=== PATIENT | male | born 1960 | race Caucasian/White ===

== ENCOUNTER 2016-07-02 15:59 | Emergency (ER) | payer OTHER ==
[2016-07-02 16:04] VITALS: BP 120/71; PULSE 62; TEMP 97.2; BMI 30.3
[2016-07-02 16:36] LABS: BASOPHIL 0.6 % (0-2.0); EOSINOPHIL 3.6 % (0-4.5); MCH 28.5 pg (25.7-33.7); MCHC 33.4 g/dl (32.0-35.9); MEAN CELL VOLUME 85.3 fl (80-96); MEAN PLT VOLUME 10.1 fl (7.5-11.1); NEUTROPHILS 57.5 % (42.8-82.8); PLATELET COUNT 185 K/MM3 (134-434); RDW 12.9 % (11.9-15.9); WHITE BLOOD COUNT 5.6 K/mm3 (4.0-10.0)
[2016-07-02 16:37] LABS: URINE APPEARANCE CLEAR; URINE BILIRUBIN NEGATIVE (NEGATIVE); URINE COLOR STRAW; URINE GLUCOSE (UA) NEGATIVE (NEGATIVE); URINE KETONE NEGATIVE (NEGATIVE); URINE LEUK ESTERASE NEGATIVE (NEGATIVE); URINE NITRITE NEGATIVE (NEGATIVE); URINE PROTEIN NEGATIVE (NEGATIVE); URINE UROBILINOGEN NEGATIVE E.U./dl (0.2-1.0)
--- NOTE | 2016-07-02 16:40 | PDOC ---
History of Present Illness <ChuchoIliana Elizabeth - Last Filed: 07/02/16 18:38> - History of Present Illness Initial Comments: 07/02/16 19:03 Patient is a 56 year old male, [employer] employee, with no significant medical hx who is presenting to the ED with nasal congestion, shortness of breath, headache for three days. Patient complains of shortness of breath that he associates with his nasal congestion. He states that after he blows his nose, he has some shortness of breath with palpitations. His shortness of breath also occurs with exertion and occasionally while at rest. The patient also complains of intermittent tension headache that is now resolved. Denies fevers, chills, nausea, vomiting, diarrhea, visual changes, productive cough, chest pain, or abdominal pain. Social Hx: Quit tobacco 2007, occasional alcohol use. Family Hx: Father of [place], mother is alive, brother alive and well Surgical Hx: Hernia repair <Raquel Richard - Last Filed: 07/02/16 19:12> - General Chief Complaint: Weakness Stated Complaint: HIGH BLOOD PRESSURE Time Seen by Provider: 07/02/16 16:37 Past History - Surgical History Abdominal Surgery: (hernia) - Psycho/Social/Smoking Cessation Hx Anxiety: No Suicidal Ideation: No Smoking History: Never smoked Have you smoked in the past 12 months: No Information on smoking cessation initiated: No Hx Alcohol Use: No Drug/Substance Use Hx: No Substance Use Type: None <Iliana Rankin Elizabeth - Last Filed: 07/02/16 18:38> <Raquel Richard - Last Filed: 07/02/16 19:12> - Past Medical History Allergies/Adverse Reactions: Allergies Allergy/AdvReac Type Severity Reaction Status Date / Time No Known Allergies Allergy Verified 07/02/16 16:02 Home Medications: Ambulatory Orders NK [No Known Home Medication] 07/02/16 Review of Systems - Review of Systems Comments:: 07/02/16 19:09 CONSTITUTIONAL: Absent: fever, chills, diaphoresis, generalized weakness, malaise, loss of appetite HEENT: Present: nasal congestion Absent: rhinorrhea, throat pain, throat swelling, difficulty swallowing, mouth swelling, ear pain, eye pain, visual changes CARDIOVASCULAR: Present: palpitations Absent: chest pain, syncope, irregular heart rate, lightheadedness, peripheral edema RESPIRATORY: Present: shortness of breath Absent: cough, dyspnea with exertion, orthopnea, wheezing, stridor, hemoptysis GASTROINTESTINAL: Absent: abdominal pain, abdominal distension, nausea, vomiting, diarrhea, constipation, melena, hematochezia GENITOURINARY: Absent: dysuria, frequency, urgency, hesitancy, hematuria, flank pain, genital pain MUSCULOSKELETAL: Absent: myalgia, arthralgia, joint swelling SKIN: Absent: rash, itching, pallor HEMATOLOGIC/IMMUNOLOGIC: Absent: easy bleeding, easy bruising, lymphadenopathy, frequent infections ENDOCRINE: Absent: unexplained weight gain, unexplained weight loss, heat intolerance, cold intolerance NEUROLOGIC: Present: headache Absent: focal weakness or paresthesia, dizziness, unsteady gait, seizure, mental status changes, bladder or bowel incontinence. PSYCHIATRIC: Absent: anxiety, depression, suicidal or homicidal ideation, hallucinations <Raquel Richard - Last Filed: 07/02/16 19:12> *Physical Exam - Vital Signs Last Vital Signs Temp Pulse Resp BP Pulse Ox 97.2 F L 62 18 120/71 97 07/02/16 16:02 07/02/16 16:02 07/02/16 16:02 07/02/16 16:02 07/02/16 16:02 <Iliana Rankin - Last Filed: 07/02/16 18:38> - Vital Signs Last Vital Signs Temp Pulse Resp BP Pulse Ox 97.2 F L 62 18 120/71 97 07/02/16 16:02 07/02/16 16:02 07/02/16 16:02 07/02/16 16:02 07/02/16 16:02 - Physical Exam Comments: 07/02/16 19:11 GENERAL: Well developed, well nourished. Awake and alert. No acute distress. HEENT: Normocephalic, atraumatic. PERRLA, EOMI. No conjunctival pallor. Sclera are non- icteric. Moist mucous membranes. Oropharynx is clear. NECK: Supple. Full ROM. No JVD. Carotid pulses 2+ and symmetric, without bruits. No thyromegaly. No lymphadenopathy. CARDIOVASCULAR: Regular rate and rhythm. No murmurs, rubs, or gallops. Distal pulses are 2+ and symmetric. PULMONARY: No evidence of respiratory distress. Lungs clear to auscultation bilaterally. No wheezing, rales or rhonchi. ABDOMINAL: Soft. Non-tender. Non-distended. No rebound or guarding. No organomegaly. Normoactive bowel sounds. MUSCULOSKELETAL: Normal range of motion at all joints. No bony deformities or tenderness. No CVA tenderness. EXTREMITIES: No cyanosis. No clubbing. No edema. No calf tenderness. SKIN: Warm and dry. Normal capillary refill. No rashes. No jaundice. NEUROLOGICAL: Alert, awake, appropriate. Cranial nerves 2-12 intact. Normal speech. Gait is normal without ataxia. PSYCHIATRIC: Cooperative. Good eye contact. Appropriate mood and affect. <Raquel Richard - Last Filed: 07/02/16 19:12> ED Treatment Course - LABORATORY CBC & Chemistry Diagram: 07/02/16 16:20 07/02/16 16:20 <Iliana Rankin - Last Filed: 07/02/16 18:38> - LABORATORY CBC & Chemistry Diagram: 07/02/16 16:20 07/02/16 16:20 - ADDITIONAL ORDERS Additional order review: Laboratory Results 07/02/16 07/02/16 07/02/16 16:20 16:20 16:20 Sodium 137 Potassium 4.2 Chloride 103 Carbon Dioxide 25 Anion Gap 9 BUN 21 H Creatinine 1.2 Creat Clearance w eGFR > 60 Random Glucose 100 Calcium 9.0 Total Bilirubin 0.4 AST 25 ALT 33 Alkaline Phosphatase 62 Creatine Kinase 216 Creatine Kinase Index 1.0 CK-MB (CK-2) 2.144 CK-MB (CK-2) Rel Index Cancelled Troponin I < 0.02 Total Protein 7.4 Albumin 4.2 Urine Color Urine Appearance Urine pH Urine Protein Urine Glucose (UA) Urine Ketones Urine Blood Urine Nitrite Urine Bilirubin Urine Urobilinogen Ur Leukocyte Esterase 07/02/16 16:20 Sodium Potassium Chloride Carbon Dioxide Anion Gap BUN Creatinine Creat Clearance w eGFR Random Glucose Calcium Total Bilirubin AST ALT Alkaline Phosphatase Creatine Kinase Creatine Kinase Index CK-MB (CK-2) CK-MB (CK-2) Rel Index Troponin I Total Protein Albumin Urine Color Straw Urine Appearance Clear Urine pH 5.0 Urine Protein Negative Urine Glucose (UA) Negative Urine Ketones Negative Urine Blood 1+ H Urine Nitrite Negative Urine Bilirubin Negative Urine Urobilinogen Negative Ur Leukocyte Esterase Negative 07/02/16 16:20 RBC 4.90 MCV 85.3 MCHC 33.4 RDW 12.9 MPV 10.1 Neutrophils % 57.5 Lymphocytes % 31.7 Monocytes % 6.6 Eosinophils % 3.6 Basophils % 0.6 <Raquel Richard - Last Filed: 07/02/16 19:12> *DC/Admit/Observation/Transfer <Iliana Rankin - Last Filed: 07/02/16 18:38> - Attestations Scribe Attestion: 07/02/16 19:11 Documentation prepared by Raquel Richard, acting as medical affairs director for Iliana Rankin MD. <Raquel Richard - Last Filed: 07/02/16 19:12> Diagnosis at time of Disposition: Nasal congestion Dyspnea Qualifiers: Dyspnea type: dyspnea on exertion Qualified Code(s): R06.09 - Other forms of dyspnea Headache Qualifiers: Headache type: unspecified Headache chronicity pattern: unspecified pattern Intractability: not intractable Qualified Code(s): R51 - Headache - Discharge Dispostion Disposition: HOME Condition at time of disposition: Stable - Referrals Referrals: STAFF,NOT ON [Primary Care Provider] - Redd Lozoya MD [Staff Physician] - - Patient Instructions Printed Discharge Instructions: DI for Nasal Congestion, DI for Hormonal and Tension Headaches, DI for Shortness of Breath Additional Instructions: PLEASE FOLLOW UP WITH YOUR REGULAR PHYSICIAN
[2016-07-02 16:54] LABS: URINE BLOOD 1+ (NEGATIVE)
[2016-07-02 17:22] LABS: CO2 25 mmol/L (21-32); COCKROFT - GAULT 102.63; CREATININE 1.2 mg/dL (0.7-1.3); GLUCOSE,RANDOM 100 mg/dL (74-106)
[2016-07-02 17:23] LABS: ALBUMIN 4.2 g/dl (3.4-5.0); ALK PHOS 62 U/L (45-117); ANION GAP 9 (8-16); BILIRUBIN,TOTAL 0.4 mg/dL (0.2-1.0); SGOT/AST 25 U/L (15-37); SGPT/ALT 33 U/L (12-78); TOT PROT 7.4 g/dl (6.4-8.2)
[2016-07-02 17:57] LABS: TROPONIN I < 0.02 ng/ml (0.00-0.05)
--- NOTE | 2016-07-03 11:24 | EKG ---
Test Reason : Blood Pressure : / mmHG Vent. Rate : 059 BPM Atrial Rate : 059 BPM P-R Int : 142 ms QRS Dur : 080 ms QT Int : 392 ms P-R-T Axes : -23 009 -02 degrees QTc Int : 388 ms SINUS BRADYCARDIA OTHERWISE NORMAL ECG NO PREVIOUS ECGS AVAILABLE Confirmed by ARIELA TORRES MD ([id number]) on 07/03/2016 11:24:29 AM Referred By: Confirmed By:ARIELA TORRES MD
== END 2016-07-02 18:44 | disposition home or self-care (01) ==
LOC: JER 15:59
DX: R51 Headache (principal); R06.09 Other forms of dyspnea
CPT/HCPCS: 36415; 71020-TC; 80053; 81003; 81015; 82550; 82553; 84484; 85025; 93005; 93010; 99283-25

== ENCOUNTER 2016-10-14 09:13 | Emergency (ER) | payer OTHER ==
[2016-10-14 09:22] VITALS: BP 132/74; PULSE 74; TEMP 97.7; BMI 30.3
--- NOTE | 2016-10-14 09:46 | PDOC ---
History of Present Illness - General Chief Complaint: Urinary Problem Stated Complaint: URINARY PROBLEM Time Seen by Provider: 10/14/16 09:28 Past History - Past Medical History Allergies/Adverse Reactions: Allergies Allergy/AdvReac Type Severity Reaction Status Date / Time No Known Allergies Allergy Verified 10/14/16 09:19 Home Medications: Ambulatory Orders NK [No Known Home Medication] 07/02/16 Other medical history: DENIES. - Surgical History Abdominal Surgery: (hernia) - Psycho/Social/Smoking Cessation Hx Anxiety: No Suicidal Ideation: No Smoking History: Never smoked Have you smoked in the past 12 months: No Hx Alcohol Use: No Drug/Substance Use Hx: No Substance Use Type: None *Physical Exam - Vital Signs Last Vital Signs Temp Pulse Resp BP Pulse Ox 97.7 F 74 19 132/74 97 10/14/16 09:19 10/14/16 09:19 10/14/16 09:19 10/14/16 09:19 10/14/16 09:19 *DC/Admit/Observation/Transfer - Attestations Physician Attestion: 10/14/16 09:46 I, Dr. Benji Morse, attest that this document has been prepared under my direction and personally reviewed by me in its entirety. I further attest, that it accurately reflects all work, treatment, procedures and medical decision -making performed by me.
[2016-10-14 10:46] LABS: URINE APPEARANCE CLEAR; URINE BILIRUBIN NEGATIVE (NEGATIVE); URINE BLOOD NEGATIVE (NEGATIVE); URINE COLOR LTYELLOW; URINE GLUCOSE (UA) NEGATIVE (NEGATIVE); URINE KETONE NEGATIVE (NEGATIVE); URINE LEUK ESTERASE NEGATIVE (NEGATIVE); URINE NITRITE NEGATIVE (NEGATIVE); URINE PROTEIN NEGATIVE (NEGATIVE); URINE UROBILINOGEN NEGATIVE mg/dL (0.2-1.0)
--- NOTE | 2016-10-14 10:57 | PDOC ---
History of Present Illness - General Chief Complaint: Urinary Problem Stated Complaint: URINARY PROBLEM Time Seen by Provider: 10/14/16 09:28 History Source: Patient Exam Limitations: No Limitations - History of Present Illness Initial Comments: 10/14/16 10:30 56-year-old male presents to the emergency room with complaints of nasal congestion along with achy joints, and for head pressure. Patient states for the past week has had the above symptoms and was given a prescription to start azithromycin today which he took 2 tablets this morning. Patient states has also been taking ggri-olm-adlcscy antihistamines including TheraFlu, Benadryl and Claritin. Patient states since this morning unable to urinate and only was able to have a few drops upon awakening without hematuria, abdominal pain, or penile pain. Patient does not complain of suprapubic pressure worsened with sitting patient states history of prostate surgery a few years ago secondary to a cyst but states no problems since. Patient states has an urologist at [facility]. Timing/Duration: changing over time Severity: moderate Associated Symptoms: reports: fever/chills, headaches Past History - Travel Traveled outside of the country in the last 30 days: No Close contact w/someone who was outside of country & ill: No - Past Medical History Allergies/Adverse Reactions: Allergies Allergy/AdvReac Type Severity Reaction Status Date / Time No Known Allergies Allergy Verified 10/14/16 09:19 Home Medications: Ambulatory Orders Azithromycin 250 mg PO DAILY 10/14/16 Other medical history: DENIES. - Surgical History Abdominal Surgery: (hernia) - Psycho/Social/Smoking Cessation Hx Anxiety: No Suicidal Ideation: No Smoking History: Never smoked Have you smoked in the past 12 months: No Hx Alcohol Use: No Drug/Substance Use Hx: No Substance Use Type: None Patient Lives Alone: No Review of Systems - Review of Systems Able to Perform ROS?: No Is the patient limited Vietnamese proficient: No Constitutional: Yes: Chills. No: Fever, Weakness HEENTM: Yes: Nose Pain, Nose Congestion. No: Eye Pain, Throat Pain Respiratory: No: Symptoms reported Cardiac (ROS): No: Symptoms Reported ABD/GI: Yes: Abdominal cramping (suprapubic pressure) : No: Symptoms Reported Musculoskeletal: No: Symptoms Reported Integumentary: No: Symptoms Reported Endocrine: No: Symptoms Reported Hematologic/Lymphatic: No: Symptoms Reported *Physical Exam - Vital Signs Last Vital Signs Temp Pulse Resp BP Pulse Ox 97.7 F 74 19 132/74 97 10/14/16 09:19 10/14/16 09:19 10/14/16 09:19 10/14/16 09:19 10/14/16 09:19 - Physical Exam General Appearance: Yes: Nourished, Appropriately Dressed, Mild Distress HEENT: positive: EOMI, JAZ, Normal Voice, TMs Normal, Pharynx Normal, Nasal Congestion (bila with boggy turbinates), Sinus Tenderness (max/frontal). negative: Pale Conjunctivae Neck: positive: Supple Respiratory/Chest: positive: Lungs Clear, Normal Breath Sounds. negative: Respiratory Distress, Accessory Muscle Use Cardiovascular: positive: Regular Rhythm, Regular Rate. negative: Murmur Gastrointestinal/Abdominal: positive: Normal Bowel Sounds, Soft, Distended ( mild midsuprapubic), Guarding, Tenderness (midsuprapubic). negative: Hernia, Mass Male Genitalia: positive: normal genitalia Musculoskeletal: negative: CVA Tenderness Extremity: positive: Normal Capillary Refill. negative: Pedal Edema Integumentary: positive: Normal Color, Warm, Moist Neurologic: positive: Motor Strength 5/5 (ambulatory) Medical Decision Making - Medical Decision Making 10/14/16 11:04 Patient here for evaluation of inability to void since this morning along with cold symptoms. Patient on exam did have mild mid suprapubic distention along with tenderness. Patient on exam had maxillary and frontal sinus tenderness with boggy turbinates. Patient ordered for Romeo catheter #14 to be inserted to relieve urinary retention. Patient also will have a urinalysis urine culture sent. 10/14/16 11:43 Laboratory Tests 10/14/16 10:32 Urine Ketones Negative Urine Blood Negative Urine Nitrite Negative Ur Leukocyte Esterase Negative Patient states feeling much better and had approximately 600 mL of clear yellow urine in the back. Patient be discharged home with a leg bag and an urology consult. 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 Pt also to stop claritin and benadryl. Pt riccardo be given a rx for augmentin for sinusitis and flonase *DC/Admit/Observation/Transfer Diagnosis at time of Disposition: Acute retention of urine Sinusitis Qualifiers: Sinusitis location: maxillary Chronicity: acute Recurrence: non-recurrent Qualified Code(s): J01.00 - Acute maxillary sinusitis, unspecified - Discharge Dispostion Disposition: HOME Condition at time of disposition: Improved - Referrals Referrals: Stephen Perdomo MD [Staff Physician] - - Patient Instructions Printed Discharge Instructions: DI for Urinary Retention in Men, DI for Sinusitis Additional Instructions: Please empty leg bag as recommended. Please take antibiotics as prescribed. Stop azithromycin. Please stop taking Claritin and any other [id number] cold medication. may return here in 2 days if unable to get an appointment with Dr. Perdomo for Romeo catheter removal.
[2016-10-14] MEDS ORDERED: ACETAMINOPHEN 500 MG TABLET (FP) PO ONE (11:03)
[2016-10-14] MEDS ORDERED: ACETAMINOPHEN 325 MG TABLET (FP) ONE (11:12)
--- NOTE | 2016-10-15 22:16 | EKG ---
Test Reason : Blood Pressure : / mmHG Vent. Rate : 067 BPM Atrial Rate : 067 BPM P-R Int : 134 ms QRS Dur : 080 ms QT Int : 366 ms P-R-T Axes : 029 007 -06 degrees QTc Int : 386 ms NORMAL SINUS RHYTHM POSSIBLE LEFT ATRIAL ENLARGEMENT ABNORMAL ECG WHEN COMPARED WITH ECG OF 02-JUL-2016 16:42, NO SIGNIFICANT CHANGE WAS FOUND Confirmed by ARIELA TORRES MD ([id number]) on 10/15/2016 10:15:59 PM Referred By: Confirmed By:ARIELA TORRES MD
== END 2016-10-14 12:16 | disposition home or self-care (01) ==
LOC: JER 09:13
PROC: 0T9B70Z Drainage of Bladder with Drainage Device, Via Natural or Artificial Opening (ICD-10-PCS; principal; 2016-10-14)
DX: J01.00 Acute maxillary sinusitis, unspecified (principal); R33.8 Other retention of urine
CPT/HCPCS: 81003; 87086; 93005; 93010; 99282-25

== ENCOUNTER 2018-03-07 21:42 | Emergency (ER) | payer OTHER ==
[2018-03-07 21:48] VITALS: BP 132/73; PULSE 75; TEMP 97.6; BMI 31.1
--- NOTE | 2018-03-07 22:26 | PDOC ---
History of Present Illness - General Chief Complaint: Blood Sugar Problem Stated Complaint: BLOOD SUGAR PROB. Time Seen by Provider: 03/07/18 21:53 History Source: Patient Exam Limitations: No Limitations - History of Present Illness Initial Comments: 03/07/18 22:19 57 yo M with a hx of borderline DM presents to the emergency department with polydipsia for the last 48 hours. Per the patient, he became concerned about his increased thirst and checked into the ED to check his BG. He states he was diagnosed with borderline diabetes last year and has been on a diet change without medication intervention with an improvement of his A1c 6 months ago. Endorses the following: increased urine frequency. Denies the following: fever, chills, chest pain, SOB, dysuria, hematuria, urgency, urinary hesitancy, diarrhea, hematochezia, penile discharge. Shx: Hernia repair Meds: None Allergies: NKDA Social: Denies tobacco, alcohol, and substance abuse. Past History - Past Medical History Allergies/Adverse Reactions: Allergies Allergy/AdvReac Type Severity Reaction Status Date / Time No Known Allergies Allergy Verified 03/07/18 21:48 Home Medications: Ambulatory Orders Amox-Tr/K Cl [Augmentin - 875Mg Tablet] 1 tab PO BID #14 tablet 10/14/16 Fluticasone Propionate [Flonase Allergy Relief] 1 - 2 spray NS BID #1 spray.susp 10/14/16 COPD: No Other medical history: TRANSVERSE MYELITIS - Surgical History Abdominal Surgery: (hernia) - Suicide/Smoking/Psychosocial Hx Smoking History: Never smoked Have you smoked in the past 12 months: No Hx Alcohol Use: No Drug/Substance Use Hx: No Substance Use Type: None Review of Systems - Review of Systems Able to Perform ROS?: Yes Is the patient limited Thai proficient: No Constitutional: No: Chills, Diaphoresis, Fever, Weakness HEENTM: No: Recent change in vision, Ear Pain, Nose Pain, Throat Pain, Mouth Pain Respiratory: No: Cough, Shortness of Breath, SOB with Exertion, Hemoptysis Cardiac (ROS): No: Chest Pain, Lightheadedness, Palpitations, Syncope, Chest Tightness ABD/GI: No: Constipated, Diarrhea, Nausea, Poor Appetite, Poor Fluid Intake, Rectal Bleeding, Vomiting, Tarry Stools : Yes: Frequency. No: Burning, Dysuria, Discharge, Hematuria, Pain, Urgency Musculoskeletal: No: Back Pain, Joint Pain, Neck Pain Integumentary: No: Dryness, Erythema, Pruritus, Rash Neurological: No: Headache, Numbness, Tingling, Tremors, Ataxia, Dizziness Psychiatric: No: Change in Appetite Endocrine: Yes: Increased Thirst. No: Unexplained Weight Gain Hematologic/Lymphatic: No: Anemia *Physical Exam - Vital Signs Last Vital Signs Temp Pulse Resp BP Pulse Ox 97.6 F 75 18 132/73 96 03/07/18 21:45 03/07/18 21:45 03/07/18 21:45 03/07/18 21:45 03/07/18 21:45 - Physical Exam General Appearance: Yes: Nourished, Appropriately Dressed. No: Apparent Distress, Intoxicated HEENT: positive: EOMI, JAZ, Normal ENT Inspection, Normal Voice, Symmetrical, TMs Normal, Pharynx Normal, Hearing Grossly Normal. negative: Pale Conjunctivae , Scleral Icterus (R), Scleral Icterus (L), Muffled/Hoarse voice, Pharyngeal Erythema, Tonsillar Exudate, Tonsillar Erythema, Nasal Congestion, Rhinorrhea, Sinus Tenderness, Excessive drooling Neck: positive: Trachea midline, Supple. negative: Tender, Lymphadenopathy (R) , Lymphadenopathy (L), Tender lateral, Tender midline Respiratory/Chest: positive: Lungs Clear, Normal Breath Sounds. negative: Chest Tender, Respiratory Distress, Accessory Muscle Use, Crackles, Rales, Rhonchi, Stridor, Wheezing, Hyperresonant Cardiovascular: positive: Regular Rhythm, Regular Rate, S1, S2. negative: Systolic Murmur Gastrointestinal/Abdominal: positive: Normal Bowel Sounds, Flat, Soft. negative : Tender, Guarding, Rebound, Tenderness, Hernia Lymphatic: negative: Adenopathy Musculoskeletal: positive: Normal Inspection. negative: CVA Tenderness, Vertebral Tenderness Extremity: positive: Normal Capillary Refill, Normal Inspection, Normal Range of Motion. 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 negative: EOM Palsy, Facial Droop , Sensory Deficit Moderate Sedation - Procedure Monitoring Vital Signs: Procedure Monitoring Vital Signs Temperature 97.6 F 03/07/18 21:45 Pulse Rate 75 03/07/18 21:45 Respiratory Rate 18 03/07/18 21:45 Blood Pressure 132/73 03/07/18 21:45 O2 Sat by Pulse Oximetry (%) 96 03/07/18 21:45 Medical Decision Making - Medical Decision Making 03/09/18 14:15 57 yo M with a hx of borderline DM presents to the emergency department with polydipsia for the last 48 hours. Initial vitals; Initial Vital Signs Temp Pulse Resp BP Pulse Ox 97.6 F 75 18 132/73 96 03/07/18 21:45 03/07/18 21:45 03/07/18 21:45 03/07/18 21:45 03/07/18 21:45 Work up: ddx: hyperglycemia. patient was not fasting as he ate within 1.5 hours ago. upon learning of his BG at 131, he requests to be discharged to return to work. patient was without symptoms at the time of discharge and advised to follow up with PMD within 1 week. Dispo; Discharge *DC/Admit/Observation/Transfer Diagnosis at time of Disposition: Polydipsia - Discharge Dispostion Disposition: HOME Condition at time of disposition: Good Decision to Admit order: No - Referrals Referrals: ON STAFF,NOT [Primary Care Provider] - [facility] [Provider Group] - Patient Instructions Printed Discharge Instructions: Type 2 Diabetes, DI for Hyperglycemia -- Adult Additional Instructions: follow up with - Post Discharge Activity
--- NOTE | 2018-03-07 22:37 | PDOC ---
Attending Attestation - Resident Resident Name: Edward Porter - ED Attending Attestation I have performed the following: I have examined & evaluated the patient, The case was reviewed & discussed with the resident, I agree w/resident's findings & plan, Exceptions are as noted - HPI HPI: 03/07/18 22:37 The patient is a 57 year old male, with no significant past medical history who presents to the emergency department complaining of increased thirst for 2 days. Upon internet research, he was concerned this was a symptom of diabetes prompting ED evaluation. He reports that he was pre-diabetic last year, but after a diet change, his last blood work 6 months ago was improved. Pt reports he may have urinated once or twice more than normal today, but denies urgency, dysuria, hematuria. Denies associated chest pain, shortness of breath, diaphoresis, headache, blurry vision, dizziness, fever, chills, nausea, vomit, diarrhea, or constipation, abdominal pain. He takes no medications. Allergies: NKDA Past surgical history: Abdominal surgery (hernia repair) Social history: Occasional alcohol use - Physicial Exam PE: 03/07/18 22:31 GENERAL: Awake, alert, and fully oriented, in no acute distress EYES: PERRLA, EOMI, sclera anicteric, conjunctiva clear ENT: Oropharynx clear without exudates. Moist mucosa LUNGS: Breath sounds equal, clear to auscultation bilaterally. No wheezes, and no crackles HEART: Regular rate and rhythm, normal S1 and S2, no murmurs, rubs or gallops ABDOMEN: Soft, nontender, normoactive bowel sounds. No guarding, no rebound. No masses EXTREMITIES: Normal range of motion, no edema. No cords, erythema, or tenderness NEUROLOGICAL: Normal speech, cranial nerves intact, equal strength and sensation b/l, normal gait SKIN: Warm, Dry, normal turgor, no rashes or lesions noted. 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 No associated symptoms. Vitals wnl. Exam wnl. FS 131, pt is not fasting (ate dinner 2 hours ago). Pt is asymptomatic, well appearing, requests DC home. Has PMD within whom he can follow up. I discussed the physical exam findings, ancillary test results and final diagnoses with the patient. I answered all of the patient's questions. The patient was satisfied with the care received and felt comfortable with the discharge plan and treatment plan. The patient will call their primary care physician within 24 hours to arrange follow-up and will return to the Emergency Department with any new, persistent or worsening symptoms.
== END 2018-03-07 22:31 | disposition home or self-care (01) ==
LOC: JER 21:42
DX: E11.9 Type 2 diabetes mellitus without complications (principal)
CPT/HCPCS: 82962; 99282-25

== ENCOUNTER 2023-01-26 14:27 | Emergency (ER) | payer OTHER ==
[2023-01-26 14:57] VITALS: BP 129/58; PULSE 65; RESP 16; TEMP 98.2; BMI 44.4
== END 2023-01-26 16:53 | disposition home or self-care (01) ==
LOC: JERFT 14:27
DX: S62.600A Fracture of unspecified phalanx of right index finger, initial encounter for closed fracture (principal); L08.9 Local infection of the skin and subcutaneous tissue, unspecified; M79.644 Pain in right finger(s); M79.89 Other specified soft tissue disorders; X58.XXXA Exposure to other specified factors, initial encounter
CPT/HCPCS: 99283-25